=== PATIENT | female | born 1995 | race American Indian/Alaskan Native ===

== ENCOUNTER 2017-01-21 15:59 | Emergency (ER) | payer SELFPAY ==
[2017-01-21] MEDS ORDERED: Sodium Chloride 0.9% 1,000 ML IV STA (16:26)
[2017-01-21 16:31] VITALS: TEMP 98.1; BMI 28.3
--- NOTE | 2017-01-21 16:33 | ED PDOC ---
Arrival/HPI - General Chief Complaint: Abdominal Pain Time Seen by Provider: 01/21/17 16:03 Historian: Patient - History of Present Illness Narrative History of Present Illness (Text): 01/21/17 16:31 21 y/o female, no pmh, nkda, c/o abdominal pain with nausea/vomiting and diarrhea started early this morning. Pt. stated that she woke up this morning with epigastric pain, on and off, associated with nausea or vomiting, 3-4 episodes of watery diarrhea with no blood, no antibiotic use or traveling outside of the [facility] for the past 4 weeks, no dizziness, no numbness or tingling, no weakness, no change in energy level, no other medical or psychological complaints. Past Medical History - Provider Review Nursing Documentation Reviewed: Yes - Infectious Disease Hx of Infectious Diseases: None - Cardiac Hx Cardiac Disorders: No - Pulmonary Hx Asthma: Yes - Neurological Hx Neurological Disorder: No - HEENT Hx HEENT Disorder: No - Renal Hx Renal Disorder: No - Endocrine/Metabolic Hx Endocrine Disorders: No - Hematological/Oncological Hx Blood Disorders: No - Integumentary Hx Dermatological Disorder: No - Musculoskeletal/Rheumatological Hx Musculoskeletal Disorders: No - Gastrointestinal Hx Gastrointestinal Disorders: No - Genitourinary/Gynecological Hx Genitourinary Disorders: No - Psychiatric Hx Psychophysiologic Disorder: No Hx Substance Use: No - Surgical History Hx Section: Yes - Anesthesia Hx Anesthesia: No Hx Anesthesia Reactions: No Hx Malignant Hyperthermia: No Family/Social History - Physician Review Nursing Documentation Reviewed: Yes Family/Social History: Unknown Family HX Smoking Status: Never Smoked Hx Alcohol Use: No Hx Substance Use: No Allergies/Home Meds Allergies/Adverse Reactions: Allergies azithromycin Allergy (Unverified 03/19/16 15:58) ANAPHYLAXIS peanut Allergy (Unverified 03/19/16 15:58) ANAPHYLAXIS Review of Systems - Review of Systems Constitutional: absent: Fatigue, Fevers Eyes: absent: Vision Changes ENT: absent: Hearing Changes Respiratory: absent: SOB, Cough, Sputum Cardiovascular: absent: Chest Pain Gastrointestinal: Abdominal Pain, Diarrhea, Nausea, Vomiting Musculoskeletal: absent: Arthralgias, Back Pain, Neck Pain, Joint Swelling, Myalgias Skin: absent: Rash, Pruritis, Skin Lesions, Laceration, Abscess, Ulcer, Cellulitis Neurological: absent: Headache, Dizziness, Focal Weakness, Gait Changes, Speech Changes, Facial Droop, Disequilibrium, Seizure Physical Exam Vital Signs Reviewed: Yes Vital Signs Temp Pulse Resp BP Pulse Ox 01/21/17 17:10 84 22 146/80 99 01/21/17 16:15 98.1 F 99 H 17 143/79 98 Temperature: Afebrile Blood Pressure: Normal Pulse: Regular Respiratory Rate: Normal Appearance: Positive for: Well-Appearing, Non-Toxic, Comfortable Pain Distress: Mild Mental Status: Positive for: Alert and Oriented X 3 - Systems Exam Head: Present: Atraumatic, Normocephalic Pupils: Present: PERRL Extroacular Muscles: Present: EOMI Conjunctiva: Present: Normal Mouth: Present: Moist Mucous Membranes Neck: Present: Normal Range of Motion Respiratory/Chest: Present: Clear to Auscultation, Good Air Exchange. No: Respiratory Distress, Accessory Muscle Use Cardiovascular: Present: Regular Rate and Rhythm, Normal S1, S2. No: Murmurs Abdomen: Present: Tenderness (+mild epigastric tendeness, negative anderson signs , no flank tenderness), Normal Bowel Sounds. No: Distention, Peritoneal Signs, Rebound, Guarding Back: Present: Normal Inspection Upper Extremity: Present: Normal Inspection. No: Cyanosis, Edema Lower Extremity: Present: Normal Inspection. No: Edema Neurological: Present: GCS=15, CN II-XII Intact, Speech Normal Skin: Present: Warm, Dry, Normal Color. No: Rashes Psychiatric: Present: Alert, Oriented x 3, Normal Insight, Normal Concentration Medical Decision Making ED Course and Treatment: 01/21/17 16:29 -labs/ua/lipase -IVF/pepcid/reglan -Observe and reassess 01/21/17 18:03 -Urine hcg negative. -Labs are non-significant. -Pt. stated that she feels better which she has to leave right now. Abdominal examination is benign with no tenderness, no guarding, no rebound. -Pt. refused to wait in the ER for further evaluation, wants to walk out which her IV was removed and doesn't wanna wait for the AMA paper. -Pt. eloped from the ER. - Lab Interpretations Lab Results: 01/21/17 17:20 01/21/17 17:20 Lab Results 01/21/17 17:20: WBC 6.6, RBC 5.04, Hgb 14.0, Hct 40.4, MCV 80.2, MCH 27.8, MCHC 34.7, RDW 13.6, Plt Count 277, MPV 9.3, Gran % 71.9 H, Lymph % (Auto) 19.5 L, Talbot % (Auto) 6.7 H, Eos % (Auto) 1.7, Baso % (Auto) 0.2, Gran # 4.72, Lymph # 1.3, Talbot # 0.4, Eos # 0.1, Baso # 0.01, Sodium 137, Potassium 4.6, Chloride 101 , Carbon Dioxide 25, Anion Gap 16, BUN 9, Creatinine 0.6, Est GFR ( Amer ) > 60, Est GFR (Non-Af Amer) > 60, Random Glucose 94, Calcium 9.8, Total Bilirubin 1.3, AST 44 H, ALT 34, Alkaline Phosphatase 114, Total Protein 8.8 H, Albumin 4.5, Globulin 4.2, Albumin/Globulin Ratio 1.1, Lipase 59 - Medication Orders Current Medication Orders: Discontinued Medications Famotidine (Pepcid) 20 mg IVP STAT STA Stop: 01/21/17 16:27 Last Admin: 01/21/17 17:26 Dose: 20 MG IVP Administration Document 01/21/17 17:26 EQ (Rec: 01/21/17 17:27 EQ [facility] [id number]) Charges for Administration # of IVP Administrations 1 Sodium Chloride (Sodium Chloride 0.9%) 1,000 mls @ 999 mls/hr IV .Q1H1M STA Stop: 01/21/17 17:26 Last Admin: 01/21/17 17:27 Dose: 999 MLS/HR eMAR Start Stop Document 01/21/17 17:27 EQ (Rec: 01/21/17 17:27 EQ [facility] [id number]) Intravenous Solution Start Date 01/21/17 Start Time 17:27 Metoclopramide HCl (Reglan) 10 mg IVP STAT STA Stop: 01/21/17 16:27 Last Admin: 01/21/17 17:27 Dose: 10 MG IVP Administration Document 01/21/17 17:27 EQ (Rec: 01/21/17 17:27 EQ [facility] [id number]) Charges for Administration # of IVP Administrations 1 - PA / RFID SPECIALIST / Resident Statement MD/DO has reviewed & agrees with the documentation as recorded. Disposition/Present on Arrival - Present on Arrival Any Indicators Present on Arrival: No History of DVT/PE: No History of Uncontrolled Diabetes: No Urinary Catheter: No History of Decub. Ulcer: No History Surgical Site Infection Following: None - Disposition Have Diagnosis and Disposition been Completed?: Yes Diagnosis: Nausea and vomiting, Diarrhea Disposition: ELOPEMENT - ER ONLY Disposition Time: 18:04 Patient Problems: Current Active Problems Problem Status Diagnosed Diarrhea Acute Nausea and vomiting Acute Condition: IMPROVED Referrals: PCP,NO [Primary Care Provider] - Follow up with primary
[2017-01-21 17:11] VITALS: BP 146/80; PULSE 84; RESP 22; O2SAT 99
[2017-01-21 17:29] LABS: ADD MANUAL DIFF? NO
[2017-01-21 17:32] LABS: BASO # 0.01 K/mm3 (0.0-2.0); BASO % 0.2 % (0.0-3.0); EOS # 0.1 (0.0-0.7); EOS % 1.7 % (1.5-5.0); GRAN # 4.72 (1.4-6.5); GRAN % 71.9 % (50.0-68.0); HEMATOCRIT 40.4 % (36.0-48.0); LYMPH # 1.3 (1.2-3.4); LYMPH % 19.5 % (22.0-35.0); MEAN CELL VOLUME 80.2 fL (80.0-105.0); MEAN CORPUSCULAR HEMOGLOBIN 27.8 pg (25.0-35.0); MEAN CORPUSCULAR HGB CONC 34.7 g/dl (31.0-37.0); MEAN PLATELET VOLUME 9.3 fl (7.0-11.0); MONO # 0.4 (0.1-0.6); MONO % 6.7 % (1.0-6.0); PLATELET COUNT 277 10^3/uL (120.0-450.0); RED CELL DISTRIBUTION WIDTH 13.6 % (11.5-14.5); WHITE BLOOD COUNT 6.6 10^3/ul (4.5-11.0)
[2017-01-21 17:48] LABS: ALB/GLOB RATIO 1.1 (1.1-1.8); ALKALINE PHOSPHATASE 114 U/L (38-133); ALT/SGPT 34 U/L (7-56); AST/SGOT 44 U/L (15-39); BILIRUBIN,TOTAL 1.3 mg/dL (0.2-1.3); BLOOD UREA NITROGEN 9 mg/dL (7-21); CALCIUM 9.8 mg/dL (8.4-10.5); CARBON DIOXIDE 25 mmol/L (21-33); CHLORIDE 101 mmol/L (98-107); GFR AFRICAN-AMERICAN > 60; GLUCOSE,RANDOM 94 mg/dL (70-110); LIPASE 59 U/L (23-300); POTASSIUM 4.6 mmol/L (3.6-5.0); SODIUM 137 mmol/L (132-148); TOTAL PROTEIN 8.8 g/dL (5.8-8.3)
== END 2017-01-21 18:40 | disposition left against medical advice (07) ==
LOC: ED 15:59
DX: R11.2 Nausea with vomiting, unspecified (principal); R19.7 Diarrhea, unspecified
CPT/HCPCS: 80053; 83690; 85025; 96374; 96375; 99283; J2765; J7040

== ENCOUNTER 2017-02-04 19:42 | Emergency (ER) | payer SELFPAY ==
[2017-02-04 19:55] VITALS: BMI 26.5
[2017-02-04 19:57] VITALS: BP 142/88; PULSE 93; RESP 16; TEMP 97.8; O2SAT 98
--- NOTE | 2017-02-04 20:12 | ED PDOC ---
Arrival/HPI - General Chief Complaint: Abnormal Skin Integrity Time Seen by Provider: 02/04/17 19:59 Historian: Patient - History of Present Illness Narrative History of Present Illness (Text): 02/04/17 20:32 21yr old female presents today with laceration/skin avulsion to right 2nd finger. pt states she was using a knife to cut open a toy and cut the finger. pt c/o minimal pain to the laceration site. denies fever/chills. denies numbness , weakness, tingling in the extremity. denies active bleeding. denies decreased ROM of finger. pt states tetanus is up to date. no other complaints. Time/Duration: Prior to Arrival Symptom Onset: Sudden Symptom Course: Improving Quality: Aching Severity Level: 3 Past Medical History - Provider Review Nursing Documentation Reviewed: Yes - Travel History Have you recently traveled outside [place] w/in the past 3 mons?: No - Infectious Disease Hx of Infectious Diseases: None - Tetanus Immunization Tetanus Immunization: Up to Date - Cardiac Hx Cardiac Disorders: No - Pulmonary Hx Asthma: Yes - Neurological Hx Neurological Disorder: No - HEENT Hx HEENT Disorder: No - Renal Hx Renal Disorder: No - Endocrine/Metabolic Hx Endocrine Disorders: No - Hematological/Oncological Hx Blood Disorders: No - Integumentary Hx Dermatological Disorder: No - Musculoskeletal/Rheumatological Hx Musculoskeletal Disorders: No - Gastrointestinal Hx Gastrointestinal Disorders: No - Genitourinary/Gynecological Hx Genitourinary Disorders: No - Psychiatric Hx Psychophysiologic Disorder: No Hx Substance Use: No - Surgical History Hx Section: Yes (x1) - Anesthesia Hx Anesthesia: No Hx Anesthesia Reactions: No Hx Malignant Hyperthermia: No Family/Social History - Physician Review Nursing Documentation Reviewed: Yes Family/Social History: Unknown Family HX Smoking Status: Never Smoked Hx Alcohol Use: No Hx Substance Use: No Allergies/Home Meds Allergies/Adverse Reactions: Allergies azithromycin Allergy (Unverified 03/19/16 15:58) ANAPHYLAXIS peanut Allergy (Unverified 03/19/16 15:58) ANAPHYLAXIS Review of Systems - Review of Systems Constitutional: absent: Fatigue, Fevers Respiratory: absent: SOB, Cough Cardiovascular: absent: Chest Pain, Palpitations Musculoskeletal: Arthralgias. absent: Back Pain, Neck Pain Skin: Laceration Neurological: absent: Headache, Dizziness Psychiatric: absent: Anxiety, Depression Physical Exam Vital Signs Reviewed: Yes Vital Signs Temp Pulse Resp BP Pulse Ox 04/28/17 19:57 97.8 F 93 H 16 142/88 98 Temperature: Afebrile Blood Pressure: Normal Pulse: Regular Respiratory Rate: Normal Appearance: Positive for: Well-Appearing, Non-Toxic, Comfortable Pain Distress: None Mental Status: Positive for: Alert and Oriented X 3 - Systems Exam Head: Present: Atraumatic Mouth: Present: Moist Mucous Membranes Neck: Present: Normal Range of Motion Respiratory/Chest: Present: Clear to Auscultation, Good Air Exchange. No: Respiratory Distress, Accessory Muscle Use Cardiovascular: Present: Regular Rate and Rhythm, Normal S1, S2. No: Murmurs Upper Extremity: Present: Normal ROM, NORMAL PULSES, Tenderness (right 2nd finger there is a small 1cm round superficial skin avulsion noted to the lateral aspect of the distal finger; no active bleeding, full rom of finger. sensation and distal pulses intact. cap refill <2. ), Neurovascularly Intact, Capillary Refill < 2s. No: Swelling, Erythema, Deformity Neurological: Present: GCS=15 Skin: Present: Warm, Dry Psychiatric: Present: Alert, Oriented x 3 Medical Decision Making ED Course and Treatment: 02/04/17 20:35 Patient is nontoxic well appearing in no distress. Vital signs are stable. pt with superficial skin avulsion. no need for repair; Wound irrigated well with high pressure irrigation Tetanus up to date refused medications for pain after irrigation; slight bleeding; gel foam applied; dressing applied. Patient was advised to keep the wound clean and dry, apply bacitracin twice daily. Advised to return immediately if signs of infection develop or return if any other concerning symptoms develop Patient verbalizes understanding of discharge instructions and need for immediate followup. Impression: Laceration, finger, skin avulsion tylenol every 4 hours as needed for pain Keep the wound clean and dry, apply bacitracin twice daily Return immediately if signs of infection develop: High fevers, increasing pain, redness, swelling, purulent discharge Follow up with the hand specialist within the next 2 days. Followup with primary care physician within the next 2 days Return if any other concerning symptoms develop Disposition/Present on Arrival - Present on Arrival Any Indicators Present on Arrival: No History of DVT/PE: No History of Uncontrolled Diabetes: No Urinary Catheter: No History of Decub. Ulcer: No History Surgical Site Infection Following: None - Disposition Have Diagnosis and Disposition been Completed?: Yes Diagnosis: Skin avulsion, Finger laceration Disposition: HOME/ ROUTINE Disposition Time: 20:00 Patient Plan: Discharge Patient Problems: Current Active Problems Problem Status Onset Finger laceration Acute Skin avulsion Acute Condition: GOOD Discharge Instructions (ExitCare): Skin Avulsion (ED), Laceration (ED) Additional Instructions: tylenol every 4 hours as needed for pain Keep the wound clean and dry, apply bacitracin twice daily Return immediately if signs of infection develop: High fevers, increasing pain, redness, swelling, purulent discharge Followup with primary care physician within the next 2 days Return if any other concerning symptoms develop Referrals: Afia Lewis MD [Staff Provider] - Follow up with primary
== END 2017-02-04 21:06 | disposition home or self-care (01) ==
LOC: ED 19:42
DX: S61.210A Laceration without foreign body of right index finger without damage to nail, initial encounter (principal); W26.0XXA Contact with knife, initial encounter

== ENCOUNTER 2017-02-14 05:53 | Emergency (ER) | payer SELFPAY ==
[2017-02-14 05:54] VITALS: BMI 26.5
--- NOTE | 2017-02-14 06:11 | ED PDOC ---
Arrival/HPI - General Time Seen by Provider: 02/14/17 06:11 Historian: Patient - History of Present Illness Narrative History of Present Illness (Text): 02/14/17 06:11 Erik Kurtz is a 21 year old female who presents to the emergency department complaining of an allergic reaction. Patient states she woke up with a pruritic rash/hives to her face/arms/chest/lip swelling. Patient is unsure what triggered the reaction but reports she last ate coffee cake last night. Patient states she took Benadryl at 05:30 today while at home. Patient denies and tongue /throat swelling, shortness of breath, abdominal pain, nausea, vomiting, diarrhea, headache, dizziness, or any other complains. Time/Duration: Other (this morning) Symptom Onset: Gradual Symptom Course: Unchanged Activities at Onset: Rest, Light Context: Home Past Medical History - Provider Review Nursing Documentation Reviewed: Yes - Infectious Disease Hx of Infectious Diseases: None - Tetanus Immunization Tetanus Immunization: Up to Date - Cardiac Hx Cardiac Disorders: No - Pulmonary Hx Asthma: Yes - Neurological Hx Neurological Disorder: No - HEENT Hx HEENT Disorder: No - Renal Hx Renal Disorder: No - Endocrine/Metabolic Hx Endocrine Disorders: No - Hematological/Oncological Hx Blood Disorders: No - Integumentary Hx Dermatological Disorder: No - Musculoskeletal/Rheumatological Hx Musculoskeletal Disorders: No - Gastrointestinal Hx Gastrointestinal Disorders: No - Genitourinary/Gynecological Hx Genitourinary Disorders: No - Psychiatric Hx Psychophysiologic Disorder: No Hx Substance Use: No - Surgical History Hx Section: Yes (x1) - Anesthesia Hx Anesthesia: No Hx Anesthesia Reactions: No Hx Malignant Hyperthermia: No Family/Social History - Physician Review Nursing Documentation Reviewed: Yes Family/Social History: No Known Family HX Smoking Status: Never Smoked Hx Alcohol Use: No Hx Substance Use: No Allergies/Home Meds Allergies/Adverse Reactions: Allergies azithromycin Allergy (Verified 02/14/17 06:14) ANAPHYLAXIS peanut Allergy (Verified 02/14/17 06:14) ANAPHYLAXIS Home Medications: Home Meds Medication Instructions Recorded Confirmed No Known Home Med 02/14/17 02/14/17 Review of Systems - Physician Review All systems were reviewed & negative as marked: Yes - Review of Systems Constitutional: Normal. absent: Fevers Eyes: Normal ENT: Normal Respiratory: Normal. absent: SOB, Cough Cardiovascular: Normal. absent: Chest Pain Gastrointestinal: Normal. absent: Abdominal Pain, Diarrhea, Nausea, Vomiting Genitourinary Female: Normal Musculoskeletal: Normal. absent: Back Pain, Neck Pain Skin: Rash, Pruritis Neurological: Normal Endocrine: Normal Hemo/Lymphatic: Normal Psychiatric: Normal Physical Exam Vital Signs Reviewed: Yes Vital Signs Temp Pulse Resp BP Pulse Ox 02/14/17 06:07 98.3 F 116 H 20 159/96 H 98 Temperature: Afebrile Blood Pressure: Normal Pulse: Regular Respiratory Rate: Normal Appearance: Positive for: Well-Appearing, Non-Toxic, Comfortable Pain Distress: None Mental Status: Positive for: Alert and Oriented X 3 - Systems Exam Head: Present: Atraumatic, Normocephalic Pupils: Present: PERRL Extroacular Muscles: Present: EOMI Conjunctiva: Present: Normal Ears: Present: Normal, NORMAL TM, Normal Canal. No: Erythema, TM Bulging, Fluid , TM Perf Mouth: Present: Moist Mucous Membranes, Other (swollen lips) Pharnyx: Present: Normal. No: ERYTHEMA, EXUDATE, Peritonsilar Swelling, Uvular Deviation, Muffled/Hoarse Voice, Strider, Soft Palate/Uvular Edema Nose (External): Present: Atraumatic Nose (Internal): Present: Normal Inspection Neck: Present: Normal Range of Motion Respiratory/Chest: Present: Clear to Auscultation, Good Air Exchange. No: Respiratory Distress, Accessory Muscle Use Cardiovascular: Present: Regular Rate and Rhythm, Normal S1, S2. No: Murmurs Abdomen: Present: Normal Bowel Sounds. No: Tenderness, Distention, Peritoneal Signs Upper Extremity: Present: Normal Inspection. No: Cyanosis, Edema Neurological: Present: GCS=15, CN II-XII Intact, Speech Normal Skin: Present: Warm, Dry, Rashes (Scattered urticaria to face, arms, and chest) , Normal Color Psychiatric: Present: Alert, Oriented x 3, Normal Insight, Normal Concentration Medical Decision Making ED Course and Treatment: 02/14/17 06:11 Impression: 21 year old female complaining of a pruritic rash/hives/lip swelling this morning. Differential Diagnosis included but are not limited to: allergic reaction Plan: -- Benadryl,Epinephrine -- Solu-medrol -- Reassess and disposition Progress Notes: - Medication Orders Current Medication Orders: Discontinued Medications Diphenhydramine HCl (Benadryl) 25 mg IVP ONCE ONE Stop: 02/14/17 06:13 Last Admin: 02/14/17 06:32 Dose: 25 mg Diphenhydramine HCl (Benadryl) Confirm Administered Dose 50 mg .ROUTE .STK-MED ONE Stop: 02/14/17 06:24 Last Admin: 02/14/17 06:30 Dose: Epinephrine HCl (Epinephrine) 0.3 mg SC ONCE ONE Stop: 02/14/17 06:14 Last Admin: 02/14/17 06:31 Dose: 0.3 mg Epinephrine HCl (Epinephrine) Confirm Administered Dose 1 mg .ROUTE .STK-MED ONE Stop: 02/14/17 06:24 Last Admin: 02/14/17 06:31 Dose: Methylprednisolone (Solu-Medrol) 125 mg IVP ONCE ONE Stop: 02/14/17 06:13 Last Admin: 02/14/17 06:32 Dose: 125 mg Methylprednisolone (Solu-Medrol) Confirm Administered Dose 125 mg .ROUTE .STK- MED ONE Stop: 02/14/17 06:24 Last Admin: 02/14/17 06:31 Dose: - Transfer of Care Patient signed out to Dr:: Pearl Other: Response to treatment/observe/reassess/final disposition - Scribe Statement The provider has reviewed the documentation as recorded by the Joann Tolentino Provider Attestation: All medical record entries made by the Joann were at my direction and personally dictated by me. I have reviewed the chart and agree that the record accurately reflects my personal performance of the history, physical exam, medical decision making, and the department course for this patient. I have also personally directed, reviewed, and agree with the discharge instructions and disposition. Disposition/Present on Arrival - Present on Arrival Any Indicators Present on Arrival: No History of DVT/PE: No History of Uncontrolled Diabetes: No Urinary Catheter: No History Surgical Site Infection Following: None - Disposition Have Diagnosis and Disposition been Completed?: No Diagnosis: Allergic reaction Disposition Time: 07:00 Condition: STABLE
[2017-02-14 06:12] VITALS: O2SAT 98
[2017-02-14] MEDS ORDERED: DiphenhydrAMINE 50 mg/ml Inj IVP ONE (06:12)
[2017-02-14] MEDS ORDERED: EPINEPHrine 1 mg/ml (1:1000) Inj SC ONE (06:13)
[2017-02-14] MEDS ORDERED: DiphenhydrAMINE 50 mg/ml Inj ONE (06:23)
[2017-02-14] MEDS ORDERED: EPINEPHrine 1 mg/ml (1:1000) Inj ONE (06:23)
[2017-02-14 07:35] VITALS: RESP 18
[2017-02-14 10:12] VITALS: BP 115/63; PULSE 75; TEMP 97.7
== END 2017-02-14 09:58 | disposition home or self-care (01) ==
LOC: ED 05:53
DX: T78.49XA Other allergy, initial encounter (principal); X58.XXXA Exposure to other specified factors, initial encounter
CPT/HCPCS: 96372; 96374; 96375; 99284; J0171; J1200; J2930

== ENCOUNTER 2017-06-25 18:13 | Emergency (ER) | payer SELFPAY ==
[2017-06-25 18:13] VITALS: BMI 26.5
[2017-06-25 18:42] VITALS: BP 113/87; PULSE 79; RESP 19; TEMP 98.4; O2SAT 99
--- NOTE | 2017-06-25 19:36 | ED PDOC ---
Arrival/HPI - General Chief Complaint: Female Genitourinary Time Seen by Provider: 06/25/17 19:00 Historian: Patient - History of Present Illness Narrative History of Present Illness (Text): 06/25/17 21:04 A 21 year old female with no significant past medical history, presents to the emergency department with a complaint of 1 week duration thick, white vaginal discharge, with no odor. She notes that she used over the counter 3-day treatment of Monistat, with no improvement. The patient denies fevers, chills, headache, dizziness, abdominal pain, nausea, vomiting, diarrhea, urinary symptoms, dyspareunia, or any other associated complaints. Time/Duration: Other (1 week) Symptom Onset: Sudden Symptom Course: Unchanged Activities at Onset: Rest, Light Context: Home Past Medical History - Provider Review Nursing Documentation Reviewed: Yes - Infectious Disease Hx of Infectious Diseases: None - Tetanus Immunization Tetanus Immunization: Up to Date - Cardiac Hx Cardiac Disorders: No - Pulmonary Hx Asthma: Yes - Neurological Hx Neurological Disorder: No - HEENT Hx HEENT Disorder: No - Renal Hx Renal Disorder: No - Endocrine/Metabolic Hx Endocrine Disorders: No - Hematological/Oncological Hx Blood Disorders: No - Integumentary Hx Dermatological Disorder: No - Musculoskeletal/Rheumatological Hx Musculoskeletal Disorders: No - Gastrointestinal Hx Gastrointestinal Disorders: No - Genitourinary/Gynecological Hx Genitourinary Disorders: No - Psychiatric Hx Psychophysiologic Disorder: No Hx Substance Use: No - Surgical History Hx Section: Yes (x1) - Anesthesia Hx Anesthesia: Yes Hx Anesthesia Reactions: No Hx Malignant Hyperthermia: No Family/Social History - Physician Review Nursing Documentation Reviewed: Yes Family/Social History: No Known Family HX Smoking Status: Never Smoked Hx Alcohol Use: No Hx Substance Use: No Allergies/Home Meds Allergies/Adverse Reactions: Allergies azithromycin Allergy (Verified 06/25/17 18:42) ANAPHYLAXIS peanut Allergy (Verified 06/25/17 18:42) ANAPHYLAXIS Home Medications: Home Meds Medication Instructions Recorded Confirmed No Known Home Med 06/25/17 06/25/17 Review of Systems - Physician Review All systems were reviewed & negative as marked: Yes - Review of Systems Constitutional: absent: Fevers, Night Sweats Respiratory: absent: SOB, Cough Cardiovascular: absent: Chest Pain Gastrointestinal: absent: Abdominal Pain, Diarrhea, Nausea, Vomiting Genitourinary Female: Vaginal Discharge (thick, white. 1 week duration.). absent: Dysuria, Frequency Neurological: absent: Headache, Dizziness Physical Exam Vital Signs Temp Pulse Resp BP Pulse Ox 06/25/17 18:37 98.4 F 79 19 113/87 99 Temperature: Afebrile Blood Pressure: Normal Pulse: Regular Respiratory Rate: Normal Appearance: Positive for: Well-Appearing, Non-Toxic, Comfortable Pain Distress: None Mental Status: Positive for: Alert and Oriented X 3 - Systems Exam Head: Present: Atraumatic, Normocephalic Pupils: Present: PERRL Extroacular Muscles: Present: EOMI Conjunctiva: Present: Normal Mouth: Present: Moist Mucous Membranes Neck: Present: Normal Range of Motion Respiratory/Chest: Present: Clear to Auscultation, Good Air Exchange. No: Respiratory Distress, Accessory Muscle Use Cardiovascular: Present: Regular Rate and Rhythm, Normal S1, S2. No: Murmurs Abdomen: Present: Normal Bowel Sounds. No: Tenderness, Distention, Peritoneal Signs Genitourinary/Pelvic Exam: Present: Vaginal Discharge (thick, white discharge. 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 No: Cyanosis, Edema Lower Extremity: Present: Normal Inspection. No: Edema Neurological: Present: GCS=15, CN II-XII Intact, Speech Normal Skin: Present: Warm, Dry, Normal Color. No: Rashes Psychiatric: Present: Alert, Oriented x 3, Normal Insight, Normal Concentration Medical Decision Making ED Course and Treatment: 06/25/17 21:10 Impression: A 21 year old female presents with 1 week duration thick, white vaginal discharge. Plan: -- Diflucan -- [facility] [place]assess and disposition Progress Notes: [facility] [place] (-). Patient given dose of diflucan, advised to continue using OTC antifungal cream to apply to the external genitalia. Otherwise was advised to follow up with primary care physician in 1-2 days without fail. Return to the emergency room at any time for any new or worsening symptoms. Patient states she fully agrees with and understands discharge instructions. States that she agrees with the plan and disposition. Verbalized and repeated discharge instructions and plan. I have given the patient opportunity to ask any additional questions. - Medication Orders Current Medication Orders: Discontinued Medications Fluconazole (Diflucan) 150 mg PO DAILY WILMER PRN Reason: Protocol - PA / TILE INSPECTOR / Resident Statement MD/DO has reviewed & agrees with the documentation as recorded. - Scribe Statement The provider has reviewed the documentation as recorded by the Joann Quintero Provider Joann Attestation: All medical record entries made by the Monaibe were at my direction and personally dictated by me. I have reviewed the chart and agree that the record accurately reflects my personal performance of the history, physical exam, medical decision making, and the department course for this patient. I have also personally directed, reviewed, and agree with the discharge instructions and disposition. Disposition/Present on Arrival - Present on Arrival Any Indicators Present on Arrival: No History of DVT/PE: No History of Uncontrolled Diabetes: No Urinary Catheter: No History of Decub. Ulcer: No History Surgical Site Infection Following: None - Disposition Have Diagnosis and Disposition been Completed?: Yes Diagnosis: Vaginal candidiasis Disposition: HOME/ ROUTINE Disposition Time: 19:35 Patient Plan: Discharge Condition: STABLE Discharge Instructions (ExitCare): Vulvovaginal Candidiasis (ED) Print Language: IVORIAN Additional Instructions: Thank you for letting us take care of you today. You were treated for vaginal candidiasis. The emergency medical care you received today was directed at your acute symptoms. It may take several days for your symptoms to resolve. Return to the Emergency Department if your symptoms worsen, do not improve, or if you have any other problems. Please contact your doctor in 2 days for re-evaluation and follow up / or call one of the physicians/clinics you have been referred to that are listed on the Patient Visit Information form that is included in your discharge packet. Bring any paperwork you were given at discharge with you along with any medications you are taking to your follow up visit. Our treatment cannot replace ongoing medical care by a primary care provider (PCP) outside of the emergency department. Thank you for allowing the [facility] team to be part of your care today. Referrals: [facility] at [facility] [Outside] - Follow up with primary Forms: Friday (Finnish), WORK NOTE
== END 2017-06-25 20:10 | disposition home or self-care (01) ==
LOC: ED 18:13
DX: B37.3 Candidiasis of vulva and vagina (principal)